=== PATIENT | male | born 1990 | race Caucasian/White ===

== ENCOUNTER 2020-02-18 13:59 | Emergency (ER) | payer MEDICARE, MEDICAID ==
[~2020-02-18] VITALS: Ht 165.1 cm; Wt 68.0 kg
[~2020-02-18 13:59] MED LIST: HYDR-757 PO; SULF-222 PO
--- NOTE | 2020-02-18 14:11 | ED GU-Male ---
General Stated Complaint: TWISTED TESTICLE, REFERRED BY [facility] Source: patient Exam Limitations: no limitations History of Present Illness Date Seen by Provider: Feb 18, 2020 Time Seen by Provider: 14:09 Initial Comments to ER with testicular pain and swelling. This began about 2 weeks ago on the right testicle. That seemed to go away and has recurred recently on the left testicle. To no fevers or chills. He is sexually active. He last injected methamphetamine yesterday but did not inject into the penis. Timing/Duration: constant Severity/Quality: moderate Activities at Onset: none Prior Genitourinary Problems: none Associated Symptoms: denies symptoms Allergies and Home Medications Allergies Coded Allergies: No Known Drug Allergies (Unverified , 09/04/14) Home Medications Doxycycline Hyclate 100 Mg Tablet, 100 MG PO BID Prescribed by: UMER GIBBS on 02/18/20 1534 Hydrocodone Bit/Acetaminophen 1 Each Tablet, 1 EA PO Q6H PRN for MILD PAIN Prescribed by: UMER GIBBS on 09/04/14 1704 Hydrocodone/Acetaminophen 1 Each Tablet, 1 EACH PO Q6H PRN for PAIN-MODERATE (5- 7) Prescribed by: UMER GIBBS on 02/18/20 1537 Trimethoprim/Sulfamethoxazole 1 Ea Tablet, 1 EA PO BID Prescribed by: UMER GIBBS on 09/04/14 1704 Patient Home Medication List Home Medication List Reviewed: Yes Review of Systems Review of Systems Constitutional: see HPI; No chills, No fever EENTM: see HPI Respiratory: no symptoms reported Cardiovascular: no symptoms reported Genitourinary: no symptoms reported Musculoskeletal: no symptoms reported Skin: no symptoms reported Psychiatric/Neurological: No Symptoms Reported Endocrine: No Symptoms Reported Past Sdefyim-Cocynw-Zqcped Hx Patient Social History Recent Foreign Travel: No Contact w/Someone Who Travel: No Seasonal Allergies Seasonal Allergies: No Past Medical History Reproductive Disorders: No Physical Exam Vital Signs Vital Signs - First Documented 02/18/20 14:06 Temp 35.9 Pulse 99 Resp 20 B/P (MAP) 136/82 (100) Pulse Ox 99 O2 Delivery Room Air Capillary Refill : Height, Weight, BMI Height: 5'5" Weight: 150lbs. oz. [id number]; BMI Method:Stated General Appearance: WD/WN, no apparent distress HEENT: PERRL/EOMI, normal ENT inspection Neck: non-tender, full range of motion Respiratory: normal breath sounds, no respiratory distress, no accessory muscle use Gastrointestinal: normal bowel sounds, non tender, soft Male: other (left testicle is about 2-3 x the size of the right. ) Neurologic/Psychiatric: alert, normal mood/affect, oriented x 3 Skin: normal color, warm/dry (the) Progress/Results/Core Measures Suspected Sepsis SIRS Temperature: Pulse: Respiratory Rate: Blood Pressure / Mean: Results/Orders Lab Results Laboratory Tests Test 02/18/20 15:20 Range/Units My Orders Orders - UMER GIBBS APRN Us Scrotum (Testicle) [id number] (02/18/20 14:01) Ua Culture If Indicated (02/18/20 14:01) Drug Screen Stat (Urine) (02/18/20 14:01) Neis Casey Dna Urine Test (02/18/20 14:01) Chlamydia Trachomatis Urine (02/18/20 14:01) Ceftriaxone For Iv Use (Rocephin For I (02/18/20 15:30) Azithromycin Tablet (Zithromax Tablet) (02/18/20 15:30) Vital Signs/I&O 02/18/20 14:06 Temp 35.9 Pulse 99 Resp 20 B/P (MAP) 136/82 (100) Pulse Ox 99 O2 Delivery Room Air Capillary Refill : Departure Impression Primary Impression: Epididymitis, left Additional Impression: Left epididymo-orchitis Disposition: HOME, SELF-CARE Condition: Stable Departure-Patient Inst. Decision time for Depature: 15:32 Referrals: NO,LOCAL PHYSICIAN (PCP) Primary Care Physician TED SANTOS MD Patient Instructions: Hydrocele, Epididymitis Add. Discharge Instructions: 1. Elevate scrotum as much as possible with supportive underwear or a towel underneath the scrotum. Ice pack to the area several times per day. Return to ER for fevers or intolerable pain. Take antibiotics as directed, this is very important and this will not improve until he has taken the antibiotics. Call your regular doctor or Dr Santos friday for an appiontment for follow up. Scripts Hydrocodone/Acetaminophen (Hydrocodone-Acetamin 5-325 mg) 1 Each Tablet 1 EACH PO Q6H PRN for PAIN-MODERATE (5-7), #10 TAB Prov: MUER GIBBS APRN 02/18/20 Doxycycline Hyclate (Doxycycline Hyclate) 100 Mg Tablet 100 MG PO BID, #20 TAB 0 Refills Prov: UMER GIBBS APRN 02/18/20 UMER GIBBS APRN Feb 18, 2020 14:11
[2020-02-18] MEDS ORDERED: AZITHROMYCIN 250 MG TAB (ZITHROMAX) PO SCH (15:30)
[2020-02-18] MEDS ORDERED: cefTRIAXone FOR IV USE 1,000 MG in WATER (STERILE) FOR INJECTION 10 ML IV ONE (15:30)
--- NOTE | 2020-02-18 15:30 | Diagnostic Imaging Report ---
PROCEDURE: US Scrotum. TECHNIQUE: Multiple real-time grayscale images were obtained over the scrotum in various projections bilaterally. INDICATION: Testicular pain and swelling. COMPARISON: None. FINDINGS: The right testicle measures 4.5 x 2.2 x 3.8 cm. Echogenicity appears normal, although slightly heterogeneous. Vascularity is normal. There is no evidence of torsion. The epididymis is normal in size and vascularity. No masses are seen. There is no hydrocele. There are tubular structures which appear to increase in color flow, with questionable varicocele present. The left testicle measures 5.1 x 3.0 x 4.2 cm. Vascularity is normal. Echogenicity is normal. There is a moderate-sized hydrocele. No masses are seen. The epididymis appears increased in vascularity and size. There is no evidence of torsion. No varicocele is seen. IMPRESSION: 1. Left epididymitis. 2. Moderate left hydrocele. 3. Questionable right varicocele. Isolated right varicocele is more commonly due to benign causes, but has been associated with compression from malignancy, and if there are clinical findings suggestive of malignancy, then consider nonemergent CT of the abdomen and pelvis to evaluate the retroperitoneum. Dictated by: Dictated on workstation # [id number]
[2020-02-18 15:33] LABS: BILIRUBIN,URINE NEGATIVE (NEGATIVE); CLARITY,URINE CLOUDY; COLOR,URINE YELLOW; GLUCOSE, URINE (UA) NEGATIVE (NEGATIVE); KETONES,URINE NEGATIVE (NEGATIVE); LEUKOCYTE ESTERASE ,URINE NEGATIVE (NEGATIVE); NITRITE,URINE NEGATIVE (NEGATIVE); PH,URINE 8.5 (5-9); PROTEIN,URINE NEGATIVE (NEGATIVE)
[2020-02-18] MEDS ORDERED: DOXY100T2 PO (15:34)
[2020-02-18] MEDS ORDERED: ACHD5005 PO (15:34)
[2020-02-18 15:40] LABS: AMORPHOUS SEDIMENT,UR MOD AMOR PHOSPHATE /LPF; BACTERIA,URINE TRACE /HPF; SQUAMOUS EPITHELIAL CELL,UR RARE /HPF; WBC,URINE 0-2 /HPF
[2020-02-18 15:44] LABS: AMPHETAMINE SCREEN, URINE POSITIVE (NEGATIVE); BARBITURATE SCREEN URINE NEGATIVE (NEGATIVE); BENZODIAZEPINES SCREEN URINE NEGATIVE (NEGATIVE); CANNABINOID SCREEN, URINE POSITIVE (NEGATIVE); COCAINE SCREEN URINE NEGATIVE (NEGATIVE); METHADONE STAT NEGATIVE (NEGATIVE); METHAMPHETAMINE SCREEN URINE S POSITIVE (NEGATIVE); OPIATE SCREEN URINE NEGATIVE (NEGATIVE); OXYCODONE STAT NEGATIVE (NEGATIVE); PROPOXYPHENE STAT NEGATIVE (NEGATIVE); TRICYCLIC ANTIDEPRESSANTS SCRE NEGATIVE (NEGATIVE)
[2020-02-18] MEDS ORDERED: LIDOCAINE 1% INJ 20 ML 20 ML VIAL INJ ONE (16:15)
[2020-02-18] MEDS ORDERED: cefTRIAXone 1,000 MG/2.86 ml vial (IM ONLY) IM SCH (16:15)
[2020-02-18 16:28] VITALS: BP 140/79
== END 2020-02-18 16:28 | disposition home or self-care (01) ==
LOC: EDUNIT# 13:59 → ER 14:02
DX: N45.1 Epididymitis (principal); N45.3 Epididymo-orchitis
CPT/HCPCS: 36415; 76870; 80306; 81000; 87491; 87591

== ENCOUNTER 2020-02-26 17:27 | Emergency (ER) | payer MEDICARE, MEDICAID ==
[~2020-02-26] VITALS: Ht 165.1 cm; Wt 63.5 kg
[~2020-02-26 17:27] MED LIST changes: +ACHD5005 PO; +DOXY100T2 PO
[2020-02-26 18:03] VITALS: BP 105/65
--- NOTE | 2020-02-26 18:51 | ED Abdominal Pain ---
General Chief Complaint: Abdominal/GI Problems Stated Complaint: CONSTIPATION Nursing Triage Note: PT AMBULATE TO [facility] WITH C/O ABD PAIN AND CONSTIPATION. PT STATES WAS PRESCRIBED ABX 4-5 DAYS AGO AND HAS NOT HAD A BOWEL MOVEMENT X3 DAYS. Sepsis Screen: No Definite Risk History of Present Illness Date Seen by Provider: Feb 26, 2020 Time Seen by Provider: 18:26 Initial Comments This is a 29-year-old male presents to the ER with complaints of abdominal pain. She was recently treated for gonorrhea and placed on "antibiotics and pain medication". Was concerned he was developing constipation as he had not had a bowel movement in 3 days and drink a bottle of laxative last night and another bottle today. Since taking laxatives his abdominal pain has worsened. Denies fevers, chills, nausea, vomiting, diarrhea. States he is still passing gas. Allergies and Home Medications Allergies Coded Allergies: No Known Drug Allergies (Unverified , 09/04/14) Home Medications Doxycycline Hyclate 100 Mg Tablet, 100 MG PO BID Prescribed by: UMER GIBBS on 02/18/20 1534 Hydrocodone Bit/Acetaminophen 1 Each Tablet, 1 EA PO Q6H PRN for MILD PAIN Prescribed by: UMER GIBBS on 09/04/14 1704 Hydrocodone/Acetaminophen 1 Each Tablet, 1 EACH PO Q6H PRN for PAIN-MODERATE (5- 7) Prescribed by: UMER GIBBS on 02/18/20 1537 Trimethoprim/Sulfamethoxazole 1 Ea Tablet, 1 EA PO BID Prescribed by: UMER GIBBS on 09/04/14 1704 Patient Home Medication List Home Medication List Reviewed: Yes Review of Systems Review of Systems Constitutional: no symptoms reported EENTM: No Symptoms Reported Respiratory: No Symptoms Reported Cardiovascular: No Symptoms Reported Gastrointestinal: See HPI Genitourinary: No Symptoms Reported Musculoskeletal: no symptoms reported Skin: no symptoms reported Psychiatric/Neurological: No Symptoms Reported Endocrine: No Symptoms Reported Hematologic/Lymphatic: No Symptoms Reported Past Cydvgbk-Gapkie-Iygxxl Hx Patient Social History Alcohol Use: Denies Use Recreational Drug Use: Yes Drug of Choice: METH, POT Smoking Status: Current Everyday Smoker Type Used: Cigarettes Recent Foreign Travel: No Contact w/Someone Who Travel: No Recent Infectious Disease Expo: No Physical Abuse: No Sexual Abuse: No Mistreated: No Fear: No Immunizations Up To Date Tetanus Booster (TDap): Unknown Seasonal Allergies Seasonal Allergies: No Past Medical History Surgeries: No Respiratory: No Cardiac: No Neurological: No Reproductive Disorders: No Gastrointestinal: No Musculoskeletal: No Endocrine: No Cancer: No Psychosocial: No Integumentary: No Physical Exam Vital Signs Vital Signs - First Documented 02/26/20 18:03 Temp 36.6 Pulse 88 Resp 18 B/P (MAP) 105/65 (78) O2 Delivery Room Air Capillary Refill : Less Than 3 Seconds Height/Weight/BMI Height: 5'5" Weight: 150lbs. oz. 68.365557kh; 23.00 BMI Method:Stated General Appearance: WD/WN, no apparent distress HEENT: PERRL/EOMI, pharynx normal Neck: full range of motion, normal inspection Respiratory: lungs clear, normal breath sounds Cardiovascular: regular rate, rhythm, no murmur Gastrointestinal: normal bowel sounds, non tender (nontender to light or deep palpation), soft; No distended Extremities: normal range of motion, non-tender, normal inspection Back: normal inspection Neurologic/Psychiatric: no motor/sensory deficits, alert, normal mood/affect, oriented x 3 Skin: normal color, warm/dry Progress/Results/Core Measures Results/Orders My Orders Orders - JUAN MICHELLE APRN Acute Abd Series (02/26/20 18:27) Dicyclomine Injection (Bentyl Injection) (02/26/20 19:15) Vital Signs/I&O 02/26/20 18:03 Temp 36.6 Pulse 88 Resp 18 B/P (MAP) 105/65 (78) O2 Delivery Room Air Blood Pressure Mean: 78 Progress Progress Note : Progress Note Abdominal series is negative for any acute findings. Discussed this with the patient and he stated he just wanted something to help the pain. Ordered dicyclomine 20 mg IM. 1923: Signed out AMA at this time, stating he was tired of waiting. Ambulated independently out of the ER. Diagnostic Imaging Diagonstic Imaging: Xray Plain Films/CT/US/NM/MRI: abdomen Comments NAME: ML APARICIO MED REC#: [id number] PT STATUS: REG ER : 1990 PHYSICIAN: JUAN MICHELLE APRN ADMIT DATE: 02/26/20/ER Draft Date of Exam:02/26/20 ACUTE ABD SERIES INDICATION: Constipation. Lower quadrant pain. EXAMINATION: Acute abdomen series. FINDINGS: The upright chest shows no abnormality. The lungs are clear. There is no effusion or pneumothorax. Supine and upright views of the abdomen show no abnormally dilated loops of bowel or bowel wall edema. There is no intramural or free intraperitoneal air. There is no mass or calculus. There is no bony abnormality. IMPRESSION: No acute abnormality is seen. The bowel gas pattern is nonobstructive. Dictated on workstation # [id number] Dict: 02/26/20 1848 Trans: 02/26/20 1853 [facility] [id number] Interpreted by: ALEYDA FARNSWORTH MD Electronically signed by: Departure Impression Primary Impression: Abdominal pain Disposition: 01 HOME, SELF-CARE Condition: Against Medical Advice Departure-Patient Inst. Decision time for Depature: 19:24 Referrals: NO,LOCAL PHYSICIAN (PCP/Family) Primary Care Physician JUAN MICHELLE BANK APPRAISER Feb 26, 2020 18:51
[2020-02-26] MEDS ORDERED: DICYCLOMINE 10 MG/ML (BENTYL) 2 ML AMP IM ONE (19:15)
== END 2020-02-26 19:22 | disposition left against medical advice (07) ==
LOC: EDUNIT# 17:27 → ER 17:28
DX: R10.9 Unspecified abdominal pain (principal); F17.210 Nicotine dependence, cigarettes, uncomplicated
CPT/HCPCS: 74022; 99282